=== PATIENT | female | born 1950 | race Caucasian/White ===

== ENCOUNTER 2017-07-30 06:39 | Inpatient (IN) ==
--- NOTE | 2017-07-30 06:46 | History & Physical Report ---
Date of Encounter: 07/30/17 Time of Encounter: 06:46 24 Hour HP Update - Instructions Instructions: If the History and Physical is less than 30 days old and was completed prior to A.M. admission and or procedure and has NOT been updated on calendar day of procedure please complete this update prior to performing procedure. - Update Patient reports changes in Medical Condition: No Changes in examination, assessment, or condition: No Changes in Medication: No Preop tests/diagnostics Reviewed: Yes Surgery Remains Indicated: Yes Consent for Planned Operative Procedure(s) Verified: Yes - Pre-Operative Checklist Preoperative Checklist Indicated: No Prophylactic Antibiotic Ordered: Yes Is VTE Prophylaxis Indicated?: NO
--- NOTE | 2017-07-30 07:14 | Discharge Summary ---
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 Qualifiers: Internal joint prosthesis site: other joint Encounter type: initial encounter Qualified Code(s): T84.038A - Mechanical loosening of other internal prosthetic joint, initial encounter (4) HTN (hypertension) Priority: Secondary Status: Chronic Qualifiers: Hypertension type: unspecified Qualified Code(s): I10 - Essential (primary ) hypertension (5) HLD (hyperlipidemia) Priority: Secondary Status: Chronic Qualifiers: Hyperlipidemia type: unspecified Qualified Code(s): E78.5 - Hyperlipidemia , unspecified (6) DMII (diabetes mellitus, type 2) Priority: Secondary Status: Chronic Qualifiers: Diabetes mellitus complication status: without complication Diabetes mellitus mcfp insulin use: unspecified mcfp insulin use status Qualified Code(s): E11.9 - Type 2 diabetes mellitus without complications (7) Obesity Status: Chronic - Discharge Medications Prescriptions: Vancomycin [Vancocin] 1,000 mg IV Q12HR #1 vial Home Medications: Albuterol Sulfate [Proair Respiclick] 2 puff IH Q4H PRN 04/17/16 [History] Aspirin 81 mg PO DAILY 04/17/16 [History] Atorvastatin [Lipitor] 40 mg PO HS 04/17/16 [History] Fluticasone Propionate [Flovent Hfa] 1 puff IH BID #0 04/17/16 [History] Gabapentin [Neurontin] 800 mg PO TID 04/17/16 [History] Ipratropium/Albuterol Neb [Duoneb] 3 ml IH QID PRN 04/17/16 [History] Metformin HCl [Fortamet] 500 mg PO BID 04/17/16 [History] Buspirone HCl [Buspar] 7.5 mg PO BID 07/30/17 [History] DULoxetine [Cymbalta] 30 mg PO QAM 07/30/17 [History] Diflunisal [Diflunisal] 500 mg PO BID 07/30/17 [History] Duloxetine HCl [Cymbalta] 60 mg PO HS 07/30/17 [History] EPINEPHrine [Epipen] 0.3 mg IM ONCE PRN 07/30/17 [History] Fluticasone Propionate Nasal [Flonase] 2 spr NS DAILY PRN 07/30/17 [History] OxyCODONE Immed Rel [Roxicodone 5 MG] 5 mg PO Q6HR PRN #28 tablet 07/30/17 [Rx] Oxygen 1.5 l NS AD 07/30/17 [History] Pantoprazole Sodium [Protonix] 40 mg PO BID 07/30/17 [History] Polyethylene Glycol 3350 [MiraLAX] 17 gm PO DAILY PRN 07/30/17 [History] Sucralfate [Carafate] 1 gm PO QID 07/30/17 [History] Tizanidine HCl [Zanaflex] 2 mg PO BID PRN 07/30/17 [History] Topiramate [Topamax] 100 mg PO BID 07/30/17 [History] Vancomycin [Vancocin] 1,000 mg IV Q12HR #1 vial 07/31/17 [Rx] Allergies/Adverse Reactions: 3 Allergy/AdvReac Type Severity Reaction Status Date / Time levofloxacin [From Levaquin] Allergy Severe Anaphylaxis Verified 07/20/17 14:57 tetanus toxoid, adsorbed Allergy Nausea Verified 07/20/17 14:57 Amoxicillin AdvReac Gastrointestinal Verified 07/30/17 08:36 Upset azithromycin AdvReac Gastrointestinal Verified 07/30/17 08:36 Upset cimetidine [From Tagamet] AdvReac Nausea Verified 07/30/17 08:36 codeine AdvReac Nausea Verified 07/30/17 08:36 naproxen [From Naprosyn] AdvReac Nausea Verified 07/30/17 08:36 Penicillins [PCN] AdvReac Nausea Verified 07/30/17 08:36 Sulfa (Sulfonamide AdvReac Hives Verified 07/30/17 08:36 Antibiotics) Primary care physician: Gentry Castellano CNP - Patient Status Disposition: Transfer Inpatient Rehab Fac Condition: Good - Discharge Instructions Follow Up With: Gentry Castellano CNP [Primary Care Provider] - 08/27/17 3:40 pm Ralph Soto MD [Partnered Physician] - 08/29/17 5:10 pm Micaela Moreira PAC [Physician Automatic Furnace Operator] - 08/09/17 8:45 am Additional Instructions: Discharge Instructions: Total Shoulder Please call [facility] ([phone]), your Primary Care Physician, or report to the Emergency Room if you have any of the following symptoms: Nausea, vomiting, fever greater that 101.5, swelling, chest pain, shortness of breath, increased pain/redness/drainage/odor for your incision site, numbness/ tingling, or any other concerning symptoms. ACTIVITY: Always keep your arm in the sling. Do not raise your arm away from your body. Do not use your arm to help with getting in or out of bed. No weight bearing permitted. NO SHOULDER MOTION. MEDICATIONS: Upon discharge resume your home medications. Take all the medications as prescribed. Take a stool softener if taking narcotic pain medications. Stool softeners are only effective if you drink enough fluids. Drink 6-8 glass of water or fluids a day, unless this is not allowed for another health problem. Despite using stool softeners, if you haven't had a bowel movement in 3 days, please switch to a gentle laxative. Gentle laxatives are sold over the counter. You should have a bowel movement within 24 hours, if not call the office. You will be discharged from the hospital with a prescription for pain medication. You are encouraged to decrease the use of narcotic pain medication as tolerated. Should you require a refill, please call the office. [facility] prescribes narcotic pain medication for only 4-6 weeks after surgery. If you require pain medication beyond this time period, you may be referred to your Primary Care Physician or to the Pain Clinic for further evaluation. Plan ahead for refills on pain medication as many narcotics either need to be picked up at the office or mailed. It is best to call 48-72 hours in advance of needing a prescription refill so you don't run out of medication. To help control the post-operative pain, you may take NSAIDs (Aleve,Advil, Motrin, Ibuprofen, Naprosyn) or Tylenol as prescribed on the bottle in addition to the pain medication. WOUND CARE: Leave the dressing on for 7-10 days. You may change the dressing if it becomes saturated greater than 50%. Do not get the dressing wet at anytime. Wash your hands with antibacterial soap, rinse and dry prior to any wound care. If you have rae the visiting nurse or rehab facility can remove the stapes 10-14 days after surgery and place steri-strips across the wound. Leave the steri-strips in place until they fall off on their own. You may let water from the shower run on top of the steri-strips. If you do not have a visiting nurse or rehab facility, you will need to return to the office at 10-14 days for the rae to be removed. If you have itching or redness around the dressing call the office. FOLLOW-UP: Please follow up with your surgeon in the orthopedic clinic, as scheduled - Hospital Course Hospital course: Ms. Pickering is a 67 year old female - Time Spent with Patient Total time spent providing and/or coordinating discharge services: <Ralph Soto - Last Filed: 08/02/17 08:24> Date of Encounter: 08/02/17 Time of Encounter: 08:23 - Discharge Diagnosis (1) Proximal humerus fracture Priority: Secondary Status: Chronic Qualifiers: Encounter type: subsequent encounter Fracture type: closed Fracture morphology: unspecified fracture morphology Laterality: right Fracture healing: with routine healing Qualified Code(s): S42.201D - Unspecified fracture of upper end of right humerus, subsequent encounter for fracture with routine healing (2) HTN (hypertension) Priority: Secondary Status: Chronic Qualifiers: Hypertension type: unspecified Qualified Code(s): I10 - Essential (primary ) hypertension (3) HLD (hyperlipidemia) Priority: Secondary Status: Chronic Qualifiers: Hyperlipidemia type: unspecified Qualified Code(s): E78.5 - Hyperlipidemia , unspecified (4) DMII (diabetes mellitus, type 2) Priority: Secondary Status: Chronic Qualifiers: Diabetes mellitus complication status: without complication Diabetes mellitus mcfp insulin use: unspecified mcfp insulin use status Qualified Code(s): E11.9 - Type 2 diabetes mellitus without complications (5) COPD (chronic obstructive pulmonary disease) Priority: Secondary Status: Chronic Qualifiers: COPD type: unspecified COPD Qualified Code(s): J44.9 - Chronic obstructive pulmonary disease, unspecified (6) 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 Pickering is a 67 year old female Status post removal of right total shoulder replacement. Patient with gross pus at surgery Gram stain negative cultures negative to date. Will continue on IV antibiotics for 6 weeks and plan for reimplantation at that point. Patient discharged stable condition - Time Spent with Patient Total time spent providing and/or coordinating discharge services:
[2017-07-30] MEDS ORDERED: Clindamycin 900 MG/50 ML 900 MG/50 ML IV.SOLN IVPB ONE (07:17)
[2017-07-30] MEDS ORDERED: Albuterol 2.5 MG/3 ML NEBULIZER IH ONE (07:17)
[2017-07-30] MEDS ORDERED: Lidocaine -MPF 1% 2 ML VIAL ID ONE (07:17)
[2017-07-30] MEDS ORDERED: Ringers Solution, Lactated 1,000 ML IVC SCH (07:30)
[2017-07-30] MEDS ORDERED: Famotidine 20 MG/2 ML VIAL IVP ONE (07:48)
[2017-07-30] MEDS ORDERED: Gabapentin 300 MG CAPSULE PO ONE ×2 (07:49→08:03)
[2017-07-30] MEDS ORDERED: *HR* Propofol 200 MG/20 ML VIAL IVP ONE (07:58)
[2017-07-30] MEDS ORDERED: *HR* FentaNYL (PF) 100 MCG/2 ML VIAL ONE (07:58)
[2017-07-30] MEDS ORDERED: *HR* Midazolam HCl 2 MG/2 ML VIAL ONE (07:58)
[2017-07-30] MEDS ORDERED: Ondansetron 4 MG/2 ML VIAL ONE (08:01)
[2017-07-30] MEDS ORDERED: Dexamethasone 4 MG/ML VIAL ONE (08:01)
[2017-07-30] MEDS ORDERED: Lidocaine -MPF 2% 2 ML VIAL ONE (08:01)
--- NOTE | 2017-07-30 08:06 | Anesthesia Evaluation PreOp ---
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 History: Denies Any Significant HX Other Medical History: Diabetes Type II, GERD Anesthesia History: No Prior Anesthetic Complications : No Alcohol Use: none Drug use: none Medications and Allergies Albuterol Sulfate [Proair Respiclick] 90 mcg IH AD PRN 04/17/16 [History] Aspirin 81 mg PO DAILY 04/17/16 [History] Atorvastatin [Lipitor] 40 mg PO HS 04/17/16 [History] Baclofen [Lioresal] 10 mg PO QID 04/17/16 [History] Cholecalciferol (D-3) [Vitamin D] 5,000 unit PO QWEEK 04/17/16 [History] Citalopram [CeleXA] 40 mg PO DAILY 04/17/16 [History] Clotrimazole 1% CRM [Lotrimin 1%] 1 appl TP BID 04/17/16 [History] Flovent Hfa 04/17/16 [History] Gabapentin [Neurontin] 800 mg PO TID 04/17/16 [History] HydrOXYzine 50 mg PO TID 04/17/16 [History] Hydrocortisone [Anusol-Hc] BID 04/17/16 [History] Ipratropium/Albuterol Neb [Duoneb] 3 ml IH AD PRN 04/17/16 [History] Metformin HCl [Fortamet] 500 mg PO BID 04/17/16 [History] Nasonex 2 spray DAILY PRN 04/17/16 [History] Omeprazole 40 mg PO DAILY 04/17/16 [History] OxyCODONE/APAP 10/325 [Percocet 10/325 MG] 1 tab-cap PO Q6HR PRN 04/17/16 [ History] Topiramate [Topamax] 50 mg PO TID 04/17/16 [History] OxyCODONE Immed Rel [Roxicodone 5 MG] 5 mg PO Q6HR PRN #28 tablet 07/30/17 [Rx] 3 Allergy/AdvReac Type Severity Reaction Status Date / Time levofloxacin [From Levaquin] Allergy Severe Anaphylaxis Verified 07/20/17 14:57 Amoxicillin Allergy Hives Verified 07/20/17 14:57 azithromycin Allergy Hives Verified 07/20/17 14:57 cimetidine [From Tagamet] Allergy Nausea Verified 07/20/17 14:57 codeine Allergy Nausea Verified 07/20/17 14:57 heparin Allergy See Verified 07/20/17 14:57 Comments naproxen [From Naprosyn] Allergy Nausea Verified 07/20/17 14:57 Penicillins [PCN] Allergy Nausea Verified 07/20/17 14:57 Sulfa (Sulfonamide Allergy Hives Verified 07/20/17 14:57 Antibiotics) tetanus toxoid, adsorbed Allergy Nausea Verified 07/20/17 14:57 - Meds/Allergy Pre-op Review Medications Reviewed: Yes Allergies Reviewed: Yes Beta Blockers on Current Med List: No Anesthesia Results - Labs Laboratory Tests 07/20/17 07/20/17 07/20/17 16:22 16:22 16:22 Hgb 10.7 L Hct 36.6 Plt Count 395 PT 11.0 INR 1.0 APTT 33.2 Sodium 139 Potassium 4.3 BUN 18 Creatinine 0.96 - Imaging EKG: report reviewed (SR occ PVC) Anesthesia Exam O2 Sat Height 1.51 m Height 1.51 m Weight 73.482 kg Weight 73.482 kg O2 Sat by Pulse Oximetry 94 Vital Signs Temp Pulse Resp BP Pulse Ox 98.8 F 90 18 123/73 94 07/30/17 07:17 07/30/17 07:17 07/30/17 07:17 07/30/17 07:17 07/30/17 07:17 Height: 4'11 Weight: 162 lbs NPO (# of Hours): MN Pain Scale: 0 - HEENT Pupil (Motor): Pupils equal, EOMI Mallampati: III Teeth: Edentulous Oral Opening: Greater than 3 - SHOWER ENCLOSURE INSTALLER LOC: Oriented SHOWER ENCLOSURE INSTALLER Motor: Normal RUE, Normal LUE, Normal RLE, Normal LLE, Normal Face SHOWER ENCLOSURE INSTALLER Sensory: Normal: RUE, LUE, RLE, LLE, Face - Cardiac Rhythm: Regular Murmur: None JVD: No Carotid Bruit: No - Pulmonary Breath Sounds: bilateral Clear Respiratory Effort: Symmetrical Anesthesia Assess/Plan ASA Score: 3 (HTN COPD DM) Modified [place] Scale for Level of Consciousness: Cooperative, oriented, and tranquil Anesthetic Plan: General, Regional Monitoring Plan: Standard Monitors Recovery Plan: PACU (Discussed GA and RA, agrees to proceed)
[2017-07-30] MEDS ORDERED: ROPIVACAINE HCL/PF 0.5% 30 ML VIAL ONE (08:31)
--- NOTE | 2017-07-30 08:41 | Physician Discharge Referral ---
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 For more information, call the [place] Tobacco Quit Line at 5-212-KOCV-NOW. - Dressing/Wound Care Site: Opsite dressing with underlying Prineo dressing to Right Shoulder - OK to shower , water resistent dressing, not water-proof. Keep Dressing intact and clean until first post-operative appointment, unless > 50% saturated. If saturated, remove dressing and replace with appropriate new dressing. Please contact office for any questions or concerns. - Diet/Nutrition Diet/Nutrition Orders: Regular - Activity Activity Orders: Up ad vandana, Ambulate - Services Needed Following services are medically necessary services: Nursing, Home Health Aide, Physical Therapy, Occupational Therapy Other Treatments: Total Shoulder Reverse Ball and Socket PT/OT with shoulder precautions x 6 weeks. NWB to affected upper extremity. No lifting/pulling or pushing. Stay in sling during activity, remove as tolerated and while at rest. Perform elbow ROM and computer lab assistant strengthening exercises frequently. ICE and elevate upper extremity frequently throughout the day. Encourage incentive spirometer - 10x/hour Encourage ambulation as tolerated. Sleep in upright position for comfort. - Transfer Medications Prescriptions: OxyCODONE Immed Rel [Roxicodone 5 MG] 5 mg PO Q6HR PRN #28 tablet PRN Reason: Pain Home Medications: Albuterol Sulfate [Proair Respiclick] 90 mcg IH AD PRN 04/17/16 [History] Aspirin 81 mg PO DAILY 04/17/16 [History] Atorvastatin [Lipitor] 40 mg PO HS 04/17/16 [History] Baclofen [Lioresal] 10 mg PO QID 04/17/16 [History] Cholecalciferol (D-3) [Vitamin D] 5,000 unit PO QWEEK 04/17/16 [History] Citalopram [CeleXA] 40 mg PO DAILY 04/17/16 [History] Clotrimazole 1% CRM [Lotrimin 1%] 1 appl TP BID 04/17/16 [History] Flovent Hfa 04/17/16 [History] Gabapentin [Neurontin] 800 mg PO TID 04/17/16 [History] HydrOXYzine 50 mg PO TID 04/17/16 [History] Hydrocortisone [Anusol-Hc] BID 04/17/16 [History] Ipratropium/Albuterol Neb [Duoneb] 3 ml IH AD PRN 04/17/16 [History] Metformin HCl [Fortamet] 500 mg PO BID 04/17/16 [History] Nasonex 2 spray DAILY PRN 04/17/16 [History] Omeprazole 40 mg PO DAILY 04/17/16 [History] OxyCODONE/APAP 10/325 [Percocet 10/325 MG] 1 tab-cap PO Q6HR PRN 04/17/16 [ History] Topiramate [Topamax] 50 mg PO TID 04/17/16 [History] OxyCODONE Immed Rel [Roxicodone 5 MG] 5 mg PO Q6HR PRN #28 tablet 07/30/17 [Rx] Allergies/Adverse Reactions: 3 Allergy/AdvReac Type Severity Reaction Status Date / Time levofloxacin [From Levaquin] Allergy Severe Anaphylaxis Verified 07/20/17 14:57 tetanus toxoid, adsorbed Allergy Nausea Verified 07/20/17 14:57 Amoxicillin AdvReac Gastrointestinal Verified 07/30/17 08:36 Upset azithromycin AdvReac Gastrointestinal Verified 07/30/17 08:36 Upset cimetidine [From Tagamet] AdvReac Nausea Verified 07/30/17 08:36 codeine AdvReac Nausea Verified 07/30/17 08:36 naproxen [From Naprosyn] AdvReac Nausea Verified 07/30/17 08:36 Penicillins [PCN] AdvReac Nausea Verified 07/30/17 08:36 Sulfa (Sulfonamide AdvReac Hives Verified 07/30/17 08:36 Antibiotics) Certification: Further, I certify that my clinical findings support that this patient is homebound (i.e. absences from home require considerable and taxing effort and are for medical reasons or gnosticism services or infrequently or short duration when for other reasons) because: Homebound Reason: Post-surgery restriction and or conditions limit ability to leave home Attestation: My signature below is to certify that this patient is under my care and that I, or nurse practitioner, or a physician's assistant office manager working with me, has a face-to -face encounter with this patient.
--- NOTE | 2017-07-30 09:00 | Anesthesia Procedures ---
Date of Encounter: 07/30/17 Time of Encounter: 09:03 Procedures: Anesthesia - Nerve Block Procedure Date: 07/30/17 Time: 09:00 Pre-op Diagnosis: shoulder pain r Surgical Procedure: r revision shoulder Checklist: Correct Patient Identifier Correct side: Right Blood Thinner: No Monitor Applied: EKG, BP, Pulse Oximetry Supplemental Oxygen via Nasal Cannula (L/min): 3 Sedation: Versed (mg): 2 Indication: Post Op Analgesia Pre-op Neuro Deficits: No Block Type: Supraclavicular Catheter placed: No Sterile Technique: Yes Ultrasound used: Yes Anatomy identified: Yes Visual spread of Local: Yes Neuro Stimulation: No Blood on Needle Aspiration: No Smooth Injection of Local: Yes Pain with Injection of Local: Yes Prep: Chlorhexadine Needle: 22 x 50 mm Stimuplex Local: Ropivacaine (0.5) Volume (cc): 30 Number of Attempts: 1 Complications: None/effective block Vitals: Vital Signs/O2 Sat, Most Current Temp Pulse Resp BP Pulse Ox 98.8 F 86 18 133/86 98 07/30/17 07:17 07/30/17 08:40 07/30/17 07:17 07/30/17 08:40 07/30/17 08:40
[2017-07-30] MEDS ORDERED: EPHEDrine 50 MG/ML VIAL ONE (09:33)
[2017-07-30] MEDS ORDERED: *HR* Phenylephrine 10 MG/ML VIAL ONE (09:33)
[2017-07-30] MEDS ORDERED: *HR* HYDROmorphone (PF) 1 MG/ML SYRINGE IVP PRN ×2 (09:39→11:30)
[2017-07-30] MEDS ORDERED: Ondansetron 4 MG/2 ML VIAL IVP PRN ×2 (09:39→11:30)
--- NOTE | 2017-07-30 10:03 | Orthopedic Operative Note ---
Date of procedure: 07/30/17 Pre-op diagnosis: Infected right total shoulder replacement Post-op diagnosis: same Procedure: Procedure: Removal right Total Shoulder Replacment Reverse, Estimated blood loss: 100 cc Hardware: Methylmethacrylate spacer with antibiotic Exam Under anesthesia: Full motion and no instability New Onset indurated area distal pole of the incision Procedural Notes: Patient with gross pus around the prosthesis. Decision made to do a two-stage revision. Operative procedure: The patient was brought to the operating room and placed on the operating room table. After general anesthesia was administered the operative shoulder was examined. Findings were noted. The patient was placed in the modified beachchair position. All pressure points were padded appropriately. And the head was stabilized in the neutral position. The operative extremity was prepped and draped in the sterile surgical fashion. The patient received IV antibiotics prior to skin incision. A standard deltopectoral approach was made to the operative shoulder. Incision was made through the old incision through the skin and subcutaneous tissue,hemo stasis was obtained with Bovie cautery. There was an indurated area distally this was ellipticized out. Upon entering the subcutaneous tissue and purulent material was encountered. This communicated into the joint. An extensive irrigation debridement was performed. The humeral component was loose and removed at the shoulder was dislocated glenoid sphere was removed with the osteotome followed by the baseplate. The glenoid was in good condition. Extensive debridement was performed of the glenoid and the humeral shaft. The wound sat for 2 minutes with Betadine saline solution was irrigated out with pulse irrigation followed by irrigation with 1 L of a antibiotic solution. It sat again with a Betadine solution and wound was again irrigated out pulse irrigation. A cement spacer was placed. The shoulder was irrigated out again. The shoulder was closed by the PA. The deltopectoral interval was closed with a running #1 PDS suture, subcutaneous tissue was irrigated and closed with 0 PDS suture, the skin was closed with rae. The patient was placed in a sterile dressing, abduction brace and extubated. The patient was then transferred to the recovery room in stable condition. Anesthesia: GETA Surgeon: Ralph Soto Condition: stable Disposition: PACU
[2017-07-30 10:47] LABS: Hemoglobin 10.4 g/dL (11.5-15.4)
--- NOTE | 2017-07-30 10:55 | Anesthesia Evaluation Post Op ---
Date of Encounter: 07/30/17 Time of Encounter: 11:00 - Vital Signs Vital Signs: Vital Signs/O2 Sat/Glucose, Most Current Temp Pulse Resp BP Pulse Ox 07/30/17 10:47 97.1 F L 85 16 126/66 97 07/30/17 10:37 80 19 130/67 100 07/30/17 10:27 81 12 111/68 100 07/30/17 10:17 97.3 F L 71 16 100/45 97 07/30/17 08:40 86 133/86 98 07/30/17 07:17 98.8 F 90 18 123/73 94 - Lungs Lungs: Clear Ascult./Percussion - Airway Airway: Non-obstructed - Cardiovascular Regular Rate - Mental Status Mental Status: Alert & Oriented, Answers Appropriately - Pain Pain Scale: 0 - Nausea Vomiting Nausea Vomiting: Not Present - Hydration Hydration: Ice chips - Discharge PostOp Status: Transfer Patient to floor
[2017-07-30] MEDS ORDERED: D5% in Water 1,000 ML IVC PRN (11:30)
[2017-07-30] MEDS ORDERED: Dextrose Gel 15 GM PO PRN ×2 (11:30)
[2017-07-30] MEDS ORDERED: *HR* OxyCODONE Immed Rel 5 MG TABLET PO PRN (11:30)
[2017-07-30] MEDS ORDERED: Temazepam 15 MG CAPSULE PO PRN (11:30)
[2017-07-30] MEDS ORDERED: OXYGEN NS SCH (11:30)
[2017-07-30] MEDS ORDERED: MOM Conc 10 ML UD.LIQ PO PRN (11:30)
[2017-07-30] MEDS ORDERED: (Albuterol Sulfate [Proair Respiclick] 2 PUFF) IH PRN (11:30)
[2017-07-30] MEDS ORDERED: Ipratropium/Albuterol Neb 3 ML IH PRN (11:30)
[2017-07-30] MEDS ORDERED: *HR* Dextrose 50 % in Water (Syg) 50 ML SYRINGE IVP PRN (11:30)
[2017-07-30] MEDS ORDERED: *HR* EPINEPHrine 0.3 MG/0.3 ML (PEN) IM PRN (11:30)
[2017-07-30] MEDS ORDERED: Sennosides 8.6 MG TABLET PO PRN (11:30)
[2017-07-30] MEDS ORDERED: tiZANidine 4 MG TABLET PO PRN (11:30)
[2017-07-30] MEDS ORDERED: Fluticasone Propionate Nasal 50 MCG/SPRAY BOTTLE NS PRN (11:30)
[2017-07-30] MEDS ORDERED: Naloxone 0.4 MG/ML INJ IVP PRN (11:30)
[2017-07-30] MEDS: Insulin LISPRO 300 UNITS/3 ML VIAL SQ SCH ×3 (12:52→21:31)
[2017-07-30] MEDS: Vancomycin 1,000 MG in D5% in Water 250 ML IVPB SCH (13:51)
[2017-07-30] MEDS: Gabapentin 400 MG CAPSULE PO SCH ×2 (13:51→21:36)
[2017-07-30] MEDS: Sucralfate 1 GM TABLET PO SCH ×3 (13:51→21:36)
[2017-07-30] MEDS: Ringers Solution, Lactated 1,000 ML IVC SCH (13:53)
[2017-07-30] MEDS ORDERED: Clindamycin 900 MG/50 ML 900 MG/50 ML IV.SOLN IVPB SCH (16:00)
[2017-07-30] MEDS: *HR* Enoxaparin 30 MG/0.3 ML SYRINGE SQ SCH (17:26)
[2017-07-30] MEDS ORDERED: *HR* Enoxaparin 30 MG/0.3 ML SYRINGE SQ SCH (18:00)
[2017-07-30] MEDS: *HR* OxyCODONE Immed Rel 5 MG TABLET PO PRN (19:53)
[2017-07-30] MEDS: NON-FORMULARY MEDICATION 1 EACH EACH PO SCH (21:32)
[2017-07-30] MEDS: *HR* Metformin 500 MG TABLET PO SCH (21:36)
[2017-07-30] MEDS: Topiramate 100 MG TABLET PO SCH (21:36)
[2017-07-30] MEDS: Beclomethasone 80mcg MDI IH SCH (22:10)
[2017-07-31] MEDS: Vancomycin 1,000 MG in D5% in Water 250 ML IVPB SCH ×2 (00:34→13:53)
[2017-07-31] MEDS: *HR* OxyCODONE Immed Rel 5 MG TABLET PO PRN ×3 (00:39→13:52)
[2017-07-31] MEDS: *HR* Enoxaparin 30 MG/0.3 ML SYRINGE SQ SCH ×2 (04:58→18:19)
--- NOTE | 2017-07-31 06:46 | Orthopedics Progress Note ---
Date of Encounter: 07/31/17 Time of Encounter: 06:46 - Assessment and Plan (1) Proximal humerus fracture Current Visit: No Status: Chronic Qualifiers: Encounter type: subsequent encounter Fracture type: closed Fracture morphology: unspecified fracture morphology Laterality: right Fracture healing: with routine healing Qualified Code(s): S42.201D - Unspecified fracture of upper end of right humerus, subsequent encounter for fracture with routine healing (2) HTN (hypertension) Current Visit: No Status: Chronic Qualifiers: Hypertension type: unspecified Qualified Code(s): I10 - Essential (primary ) hypertension (3) HLD (hyperlipidemia) Current Visit: No Status: Chronic Qualifiers: Hyperlipidemia type: unspecified Qualified Code(s): E78.5 - Hyperlipidemia , unspecified (4) DMII (diabetes mellitus, type 2) Current Visit: No Status: Chronic Qualifiers: Diabetes mellitus complication status: without complication Diabetes mellitus intermodal dispatcher insulin use: unspecified alf insulin use status Qualified Code(s): E11.9 - Type 2 diabetes mellitus without complications (5) COPD (chronic obstructive pulmonary disease) Current Visit: No Status: Chronic Qualifiers: COPD type: unspecified COPD Qualified Code(s): J44.9 - Chronic obstructive pulmonary disease, unspecified (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 Afebrile vital signs stable. Operative extremity: Neurovascularly intact Dressing clean dry and intact Calves nontender Assessment and plan: Continue with postoperative care Myoview 36 Objective Vital signs: Vital Signs Temp Pulse Resp BP Pulse Ox 07/31/17 03:53 98.5 F 66 20 102/66 95 07/31/17 00:30 97.7 F 88 19 138/70 97 07/30/17 22:15 14 92 07/30/17 20:39 98.7 F 90 19 118/68 91 07/30/17 15:25 98.1 F 82 18 120/68 93 07/30/17 14:08 98.1 F 75 18 127/61 96 07/30/17 13:21 98.2 F 71 18 129/68 95 07/30/17 12:08 98.0 F 73 15 114/62 97 07/30/17 11:43 97.9 F 74 15 129/69 100 07/30/17 11:15 97.9 F 74 16 109/70 98 07/30/17 10:57 97.1 F L 80 16 129/65 100 07/30/17 10:47 97.1 F L 85 16 126/66 97 07/30/17 10:37 80 19 130/67 100 07/30/17 10:27 81 12 111/68 100 07/30/17 10:17 97.3 F L 71 16 100/45 97 07/30/17 08:40 86 133/86 98 07/30/17 07:17 98.8 F 90 18 123/73 94 Intake and Output 07/30/17 07/30/17 07/31/17 15:59 23:59 07:59 Intake Total 300 / 300 50 / 50 600 / 600 Output Total 650 / 650 500 / 500 Balance -350 / -350 50 / 50 100 / 100 Intake: IV Fluids 300 / 300 250 / 250 Cleocin Premix 900 MG/50 ML 900 50 / 50 mg In 50 ml @ 100 mls/hr IVPB PREOP ONE Rx#:[id number] Vancocin 1,000 MG In Dextrose 5 250 / 250 250 / 250 % 250 ML @ 167 mls/hr IVPB Q12H RAFAEL Rx#:[id number] Oral 50 / 50 350 / 350 Output: Urine 550 / 550 500 / 500 Estimated Blood Loss 100 / 100 Other: Stool Size Moderate Stool Consistency formed Stool Characteristics Normal for Patient Stool Color Brown # Voids 1 # Bowel Movements 1 Blood Glucose* 110 148 - Labs CBC & BMP: 07/30/17 10:38 Labs: Abnormal lab results Hgb 10.4 g/dL (11.5-15.4) L 07/30/17 10:38 POC Glucose 110 (58-89) H 07/30/17 12:15 - VTE Documentation of Mechanical Device: Venous foot pump, device Consult Discharge Plan - Plan Additional Instructions: Discharge Instructions: Total Shoulder Please call [facility] ([phone]), your Primary Care Physician, or report to the Emergency Room if you have any of the following symptoms: Nausea, vomiting, fever greater that 101.5, swelling, chest pain, shortness of breath, increased pain/redness/drainage/odor for your incision site, numbness/ tingling, or any other concerning symptoms. ACTIVITY: Always keep your arm in the sling. Do not raise your arm away from your body. Do not use your arm to help with getting in or out of bed. No weight bearing permitted. NO SHOULDER MOTION. MEDICATIONS: Upon discharge resume your home medications. Take all the medications as prescribed. Take a stool softener if taking narcotic pain medications. Stool softeners are only effective if you drink enough fluids. Drink 6-8 glass of water or fluids a day, unless this is not allowed for another health problem. Despite using stool softeners, if you haven't had a bowel movement in 3 days, please switch to a gentle laxative. Gentle laxatives are sold over the counter. You should have a bowel movement within 24 hours, if not call the office. You will be discharged from the hospital with a prescription for pain medication. You are encouraged to decrease the use of narcotic pain medication as tolerated. Should you require a refill, please call the office. [facility] prescribes narcotic pain medication for only 4-6 weeks after surgery. If you require pain medication beyond this time period, you may be referred to your Primary Care Physician or to the Pain Clinic for further evaluation. Plan ahead for refills on pain medication as many narcotics either need to be picked up at the office or mailed. It is best to call 48-72 hours in advance of needing a prescription refill so you don't run out of medication. To help control the post-operative pain, you may take NSAIDs (Aleve,Advil, Motrin, Ibuprofen, Naprosyn) or Tylenol as prescribed on the bottle in addition to the pain medication. WOUND CARE: Leave the dressing on for 7-10 days. You may change the dressing if it becomes saturated greater than 50%. Do not get the dressing wet at anytime. Wash your hands with antibacterial soap, rinse and dry prior to any wound care. If you have rae the visiting nurse or rehab facility can remove the stapes 10-14 days after surgery and [address] steri-strips across the wound. Leave the steri-strips in place until they fall off on their own. You may let water from the shower run on top of the steri-strips. If you do not have a visiting nurse or rehab facility, you will need to return to the office at 10-14 days for the rae to be removed. If you have itching or redness around the dressing call the office. FOLLOW-UP: Please follow up with your surgeon in the orthopedic clinic, as scheduled Referrals: Gentry Castellano CNP [Primary Care Provider] - 08/27/17 3:40 pm Ralph Soto MD [Partnered Physician] - 08/29/17 5:10 pm Micaela Moreira PAC [Physician Assistant Mechanic] - 08/09/17 8:45 am
[2017-07-31 07:28] LABS: Hematocrit 31.5 % (35.3-44.9); Hemoglobin 9.4 g/dL (11.5-15.4)
[2017-07-31] MEDS: Beclomethasone 80mcg MDI IH SCH ×2 (08:17→21:15)
[2017-07-31] MEDS: Insulin LISPRO 300 UNITS/3 ML VIAL SQ SCH ×4 (08:18→21:28)
[2017-07-31] MEDS: Aspirin 81 MG TAB.CHEW PO SCH (08:43)
[2017-07-31] MEDS: Sucralfate 1 GM TABLET PO SCH ×4 (08:43→21:20)
[2017-07-31] MEDS: Gabapentin 400 MG CAPSULE PO SCH ×3 (08:45→21:20)
[2017-07-31] MEDS: Topiramate 100 MG TABLET PO SCH ×2 (08:47→21:20)
[2017-07-31] MEDS: *HR* Metformin 500 MG TABLET PO SCH ×2 (08:47→21:20)
[2017-07-31] MEDS: NON-FORMULARY MEDICATION 1 EACH EACH PO SCH ×2 (08:57→21:30)
--- NOTE | 2017-07-31 12:26 | Event Note ---
Date of Encounter: 07/31/17 Time of Encounter: 12:23 PCR - Right Removal of Hardware; Washout with cement spacer placement. 07/31/17 No Shoulder motion, in brace. OK for elbow ROM and road crossing guard strengthening. IV PICC line today, Vancomycin 1 g q 12 - pharm to dose. RX printed* NEED CULTURE RESULTS* POD#.1 Comorbidities: DMII, HTN, HLD, Obesity Labs: Baseline 10.7/36 07/31 - h/H 9.4 Patient seen at bedside. Pain control: adequate Participating in PT. All questions and concerns addressed. Educated on use of incentive spirometer, ambulation, and hydration. Patient educated on post-operative restrictions and care. Addressed: We discussed her infection and plan for next POW#6 D/C plan: ROBERTA printed. Patient wanting ECF - will need to start AUTH today. ECF ROBERTA created
[2017-07-31 13:58] LABS: BUN/Creatinine Ratio 12 (6-26); Blood Urea Nitrogen 11 mg/dL (7-20); Calcium 8.7 mg/dL (8.6-10.8); Carbon Dioxide 21 mEq/L (19-29); Chloride 102 mEq/L (98-109); Glucose 151 mg/dL (70-99); Osmolality,Calculated 278 (280-300); Potassium 3.6 mEq/L (3.5-4.5); Sodium 133 mEq/L (136-145); eGFR For African Americans > 60 (> 60); eGFR For Non-African Americans > 60 (> 60)
--- NOTE | 2017-07-31 17:04 | Physician Discharge Referral ---
ExtendedCare Referral Info Transfer To: [facility] Provider in Charge: Provider in Charge after Transfer: PCP Institutional Level of Care: Skilled - Diagnosis (1) Infection of total joint prosthesis Priority: Primary Status: Acute (2) Status post hardware removal Priority: Primary Status: Acute (3) Mechanical loosening of internal prosthetic joint Priority: Primary Status: Chronic (4) HTN (hypertension) Priority: Secondary Status: Chronic (5) HLD (hyperlipidemia) Priority: Secondary Status: Chronic (6) DMII (diabetes mellitus, type 2) Priority: Secondary Status: Chronic (7) Obesity Priority: Secondary Status: Chronic Expected Duration of Placement: < 30 days Prognosis: Good Aware of Diagnosis: Patient Aware of Prognosis: Patient - Transfer Medications Prescriptions: Vancomycin [Vancocin] 1,000 mg IV Q12HR #1 vial Home Medications: Albuterol Sulfate [Proair Respiclick] 2 puff IH Q4H PRN 04/17/16 [History] Aspirin 81 mg PO DAILY 04/17/16 [History] Atorvastatin [Lipitor] 40 mg PO HS 04/17/16 [History] Fluticasone Propionate [Flovent Hfa] 1 puff IH BID #0 04/17/16 [History] Gabapentin [Neurontin] 800 mg PO TID 04/17/16 [History] Ipratropium/Albuterol Neb [Duoneb] 3 ml IH QID PRN 04/17/16 [History] Metformin HCl [Fortamet] 500 mg PO BID 04/17/16 [History] Buspirone HCl [Buspar] 7.5 mg PO BID 07/30/17 [History] DULoxetine [Cymbalta] 30 mg PO QAM 07/30/17 [History] Diflunisal [Diflunisal] 500 mg PO BID 07/30/17 [History] Duloxetine HCl [Cymbalta] 60 mg PO HS 07/30/17 [History] EPINEPHrine [Epipen] 0.3 mg IM ONCE PRN 07/30/17 [History] Fluticasone Propionate Nasal [Flonase] 2 spr NS DAILY PRN 07/30/17 [History] OxyCODONE Immed Rel [Roxicodone 5 MG] 5 mg PO Q6HR PRN #28 tablet 07/30/17 [Rx] Oxygen 1.5 l NS AD 07/30/17 [History] Pantoprazole Sodium [Protonix] 40 mg PO BID 07/30/17 [History] Polyethylene Glycol 3350 [MiraLAX] 17 gm PO DAILY PRN 07/30/17 [History] Sucralfate [Carafate] 1 gm PO QID 07/30/17 [History] Tizanidine HCl [Zanaflex] 2 mg PO BID PRN 07/30/17 [History] Topiramate [Topamax] 100 mg PO BID 07/30/17 [History] Vancomycin [Vancocin] 1,000 mg IV Q12HR #1 vial 07/31/17 [Rx] Allergies/Adverse Reactions: 3 Allergy/AdvReac Type Severity Reaction Status Date / Time levofloxacin [From Levaquin] Allergy Severe Anaphylaxis Verified 07/20/17 14:57 tetanus toxoid, adsorbed Allergy Nausea Verified 07/20/17 14:57 Amoxicillin AdvReac Gastrointestinal Verified 07/30/17 08:36 Upset azithromycin AdvReac Gastrointestinal Verified 07/30/17 08:36 Upset cimetidine [From Tagamet] AdvReac Nausea Verified 07/30/17 08:36 codeine AdvReac Nausea Verified 07/30/17 08:36 naproxen [From Naprosyn] AdvReac Nausea Verified 07/30/17 08:36 Penicillins [PCN] AdvReac Nausea Verified 07/30/17 08:36 Sulfa (Sulfonamide AdvReac Hives Verified 07/30/17 08:36 Antibiotics) - Respiratory Orders None Smoking Cessation: Smoking cessation has been advised. For more information, call the [place] Tobacco Quit Line at 7-641-ICBC-NOW. - Lab Orders Lab Orders: CBC, Other (include drug levels w/frequency) (Vancomycin Peaks/ Trough - Pharmacy to dose ESR/CRP weekly BMP weekly) - Ancillary Orders May use pressure relief devices daily prn, May go on RENETTA w/family/respon republican w /meds at nurse discretion PRN, May consult with Dentist, Turner Machine Operator, Anchor Tack Puller PRN - Mobility Orders Chair, Ambulate - Rehabiliation Orders Rehab Potential: Good Rehab Orders: ROM Exercises, Evaluation for Occupational Therapy Other: No Shoulder ROM. In brace at all times. Elbow ROM ok, pediatric dental hygienist strengthening. Ambulate. RUE NWB. - Treatments List/Other: Opsite dressing, leave intact until first post-operative visit. Aubrey placed. If dressing becomes >50% saturated, contact office, remove dressing and place appropriate dressing in its place. Do not allow for dressing to get wet. Shoulder Precautions x 6 weeks. Apply cold therapy wrap 3-6x/day for 20 minutes at a time. Encourage ambulation throughout the day. Use Incentive spirometer 10x/hour. Elevate affected extremity above heart as tolerated. NWB to affected upper extremity x 6 weeks. - Diet Orders Regular CERTIFICATION: I certify that the transfer of the above named patient to an Extended Care Facility is necessary for the continuing treatment of the diagnosis listed. The above information is true and accurate reflection of patient's current condition. Confidential - Redisclosure prohibited without a patient's written consent.
[2017-08-01] MEDS: Vancomycin 1,000 MG in D5% in Water 250 ML IVPB SCH ×2 (01:59→15:22)
[2017-08-01 03:28] LABS: Hemoglobin 9.2 g/dL (11.5-15.4)
[2017-08-01] MEDS: *HR* OxyCODONE Immed Rel 5 MG TABLET PO PRN ×4 (04:03→23:44)
[2017-08-01] MEDS: *HR* Enoxaparin 30 MG/0.3 ML SYRINGE SQ SCH ×2 (06:36→17:56)
[2017-08-01] MEDS: Beclomethasone 80mcg MDI IH SCH ×2 (08:15→20:27)
[2017-08-01] MEDS: *HR* Metformin 500 MG TABLET PO SCH ×2 (08:45→21:11)
[2017-08-01] MEDS: Aspirin 81 MG TAB.CHEW PO SCH (08:45)
[2017-08-01] MEDS: Gabapentin 400 MG CAPSULE PO SCH ×3 (08:46→21:11)
[2017-08-01] MEDS: Topiramate 100 MG TABLET PO SCH ×2 (08:46→21:12)
[2017-08-01] MEDS: Sucralfate 1 GM TABLET PO SCH ×4 (08:46→21:11)
[2017-08-01] MEDS: Insulin LISPRO 300 UNITS/3 ML VIAL SQ SCH ×4 (08:48→21:14)
[2017-08-01] MEDS: NON-FORMULARY MEDICATION 1 EACH EACH PO SCH ×2 (12:01→21:12)
--- NOTE | 2017-08-01 13:27 | Orthopedics Progress Note ---
Date of Encounter: 08/01/17 Time of Encounter: 13:27 - Assessment and Plan (1) Proximal humerus fracture Current Visit: No Status: Chronic Qualifiers: Encounter type: subsequent encounter Fracture type: closed Fracture morphology: unspecified fracture morphology Laterality: right Fracture healing: with routine healing Qualified Code(s): S42.201D - Unspecified fracture of upper end of right humerus, subsequent encounter for fracture with routine healing (2) HTN (hypertension) Current Visit: No Status: Chronic Qualifiers: Hypertension type: unspecified Qualified Code(s): I10 - Essential (primary ) hypertension (3) HLD (hyperlipidemia) Current Visit: No Status: Chronic Qualifiers: Hyperlipidemia type: unspecified Qualified Code(s): E78.5 - Hyperlipidemia , unspecified (4) DMII (diabetes mellitus, type 2) Current Visit: No Status: Chronic Qualifiers: Diabetes mellitus complication status: without complication 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 mellitus school janitor insulin use: unspecified residential insulin use status Qualified Code(s): E11.9 - Type 2 diabetes mellitus without complications (5) COPD (chronic obstructive pulmonary disease) Current Visit: No Status: Chronic Qualifiers: COPD type: unspecified COPD Qualified Code(s): J44.9 - Chronic obstructive pulmonary disease, unspecified (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 Afebrile vital signs stable. Operative extremity: Neurovascularly intact Dressing clean dry and intact Calves nontender Assessment and plan: Continue with postoperative care Hematocrit 31 Objective Vital signs: Vital Signs Temp Pulse Resp BP Pulse Ox 08/01/17 11:51 93 15 108/57 94 08/01/17 08:15 18 93 08/01/17 07:18 98.5 F 92 14 101/58 93 08/01/17 03:57 98.6 F 90 18 100/59 92 07/31/17 23:44 97.9 F 111 18 151/71 94 07/31/17 21:17 18 96 07/31/17 19:35 97.9 F 119 18 165/65 96 07/31/17 17:27 98.0 F 76 14 120/68 98 Intake and Output 07/31/17 08/01/17 08/01/17 23:59 07:59 15:59 Intake Total 480 / 480 480 / 480 Balance 480 / 480 480 / 480 Intake: Oral 480 / 480 480 / 480 Other: # Voids 3 2 Blood Glucose* 112 123 - Labs CBC & BMP: 08/01/17 03:20 07/31/17 13:26 Labs: Abnormal lab results Hgb 9.2 g/dL (11.5-15.4) L 08/01/17 03:20 Hct 31.0 % (35.3-44.9) L 08/01/17 03:20 Sodium 133 mEq/L (136-145) L 07/31/17 13:26 Glucose 151 mg/dL (70-99) H 07/31/17 13:26 POC Glucose 123 (58-89) H 08/01/17 11:58 Calculated Osmolality 278 (280-300) L 07/31/17 13:26 - VTE Documentation of Mechanical Device: Venous foot pump, device Consult Discharge Plan - Plan Additional Instructions: Discharge Instructions: Total Shoulder Please call [facility] ([phone]), your Primary Care Physician, or report to the Emergency Room if you have any of the following symptoms: Nausea, vomiting, fever greater that 101.5, swelling, chest pain, shortness of breath, increased pain/redness/drainage/odor for your incision site, numbness/ tingling, or any other concerning symptoms. ACTIVITY: Always keep your arm in the sling. Do not raise your arm away from your body. Do not use your arm to help with getting in or out of bed. No weight bearing permitted. NO SHOULDER MOTION. MEDICATIONS: Upon discharge resume your home medications. Take all the medications as prescribed. Take a stool softener if taking narcotic pain medications. Stool softeners are only effective if you drink enough fluids. Drink 6-8 glass of water or fluids a day, unless this is not allowed for another health problem. Despite using stool softeners, if you haven't had a bowel movement in 3 days, please switch to a gentle laxative. Gentle laxatives are sold over the counter. You should have a bowel movement within 24 hours, if not call the office. You will be discharged from the hospital with a prescription for pain medication. You are encouraged to decrease the use of narcotic pain medication as tolerated. Should you require a refill, please call the office. [facility] prescribes narcotic pain medication for only 4-6 weeks after surgery. If you require pain medication beyond this time period, you may be referred to your Primary Care Physician or to the Pain Clinic for further evaluation. Plan ahead for refills on pain medication as many narcotics either need to be picked up at the office or mailed. It is best to call 48-72 hours in advance of needing a prescription refill so you don't run out of medication. To help control the post-operative pain, you may take NSAIDs (Aleve,Advil, Motrin, Ibuprofen, Naprosyn) or Tylenol as prescribed on the bottle in addition to the pain medication. WOUND CARE: Leave the dressing on for 7-10 days. You may change the dressing if it becomes saturated greater than 50%. Do not get the dressing wet at anytime. Wash your hands with antibacterial soap, rinse and dry prior to any wound care. If you have rae the visiting nurse or rehab facility can remove the stapes 10-14 days after surgery [address] steri-strips across the wound. Leave the steri-strips in place until they fall off on their own. You may let water from the shower run on top of the steri-strips. If you do not have a visiting nurse or rehab facility, you will need to return to the office at 10-14 days for the rae to be removed. If you have itching or redness around the dressing call the office. FOLLOW-UP: Please follow up with your surgeon in the orthopedic clinic, as scheduled Referrals: Gentry Castellano CNP [Primary Care Provider] - 08/27/17 3:40 pm Ralph Soto MD [Partnered Physician] - 08/29/17 5:10 pm Micaela Moreira PAC [Physician Secretary Bookkeeper] - 08/09/17 8:45 am Prescriptions: Vancomycin [Vancocin] 1,000 mg IV Q12HR #1 vial
[2017-08-02] MEDS: *HR* OxyCODONE Immed Rel 5 MG TABLET PO PRN ×2 (06:24→16:50)
[2017-08-02] MEDS: *HR* Enoxaparin 30 MG/0.3 ML SYRINGE SQ SCH ×2 (06:24→16:51)
[2017-08-02] MEDS: Beclomethasone 80mcg MDI IH SCH ×2 (08:07→22:31)
[2017-08-02] MEDS: Insulin LISPRO 300 UNITS/3 ML VIAL SQ SCH ×4 (08:17→20:46)
[2017-08-02] MEDS: Sucralfate 1 GM TABLET PO SCH ×4 (08:17→20:46)
[2017-08-02] MEDS: *HR* Metformin 500 MG TABLET PO SCH ×2 (08:17→20:46)
[2017-08-02] MEDS: Topiramate 100 MG TABLET PO SCH ×2 (08:18→20:45)
[2017-08-02] MEDS: Aspirin 81 MG TAB.CHEW PO SCH (08:18)
[2017-08-02] MEDS: Gabapentin 400 MG CAPSULE PO SCH ×3 (08:18→20:45)
[2017-08-02] MEDS: NON-FORMULARY MEDICATION 1 EACH EACH PO SCH (08:19)
--- NOTE | 2017-08-02 08:23 | Orthopedics Progress Note ---
Date of Encounter: 08/02/17 Time of Encounter: 08:22 - Assessment and Plan (1) Proximal humerus fracture Current Visit: No Status: Chronic Qualifiers: Encounter type: subsequent encounter Fracture type: closed Fracture morphology: unspecified fracture morphology Laterality: right Fracture healing: with routine healing Qualified Code(s): S42.201D - Unspecified fracture of upper end of right humerus, subsequent encounter for fracture with routine healing (2) HTN (hypertension) Current Visit: No Status: Chronic Qualifiers: Hypertension type: unspecified Qualified Code(s): I10 - Essential (primary ) hypertension (3) HLD (hyperlipidemia) Current Visit: No Status: Chronic Qualifiers: Hyperlipidemia type: unspecified Qualified Code(s): E78.5 - Hyperlipidemia , unspecified (4) DMII (diabetes mellitus, type 2) Current Visit: No Status: Chronic Qualifiers: Diabetes mellitus complication status: without complication 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 fpc insulin use status Qualified Code(s): E11.9 - Type 2 diabetes mellitus without complications (5) COPD (chronic obstructive pulmonary disease) Current Visit: No Status: Chronic Qualifiers: COPD type: unspecified COPD Qualified Code(s): J44.9 - Chronic obstructive pulmonary disease, unspecified (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 Afebrile vital signs stable. Operative extremity: Neurovascularly intact Dressing clean dry and intact Calves nontender Assessment and plan: Continue with postoperative care Cultures negative to date we will continue to monitor discharged today Objective Vital signs: Vital Signs Temp Pulse Resp BP Pulse Ox 08/02/17 07:25 97.7 F 103 14 106/63 94 08/02/17 04:40 98.3 F 79 16 118/73 92 08/01/17 23:47 98.1 F 94 18 124/64 93 08/01/17 20:27 14 93 08/01/17 19:01 97.4 F L 90 18 108/63 96 08/01/17 11:51 93 15 108/57 94 Intake and Output 08/01/17 08/02/17 08/02/17 23:59 07:59 15:59 Intake Total 240 / 240 240 / 240 250 / 250 Balance 240 / 240 240 / 240 250 / 250 Intake: IV Fluids 250 / 250 Vancocin 1,000 MG In Dextrose 5 250 / 250 % 250 ML @ 167 mls/hr IVPB Q24H [facility]FAEL Rx#:[id number] Oral 240 / 240 240 / 240 Other: # Voids 2 2 Blood Glucose* 137 122 - Labs CBC & BMP: 08/01/17 03:20 07/31/17 13:26 Labs: Abnormal lab results Hgb 9.2 g/dL (11.5-15.4) L 08/01/17 03:20 Hct 31.0 % (35.3-44.9) L 08/01/17 03:20 Sodium 133 mEq/L (136-145) L 07/31/17 13:26 Glucose 151 mg/dL (70-99) H 07/31/17 13:26 POC Glucose 122 (58-89) H 08/02/17 07:30 Calculated Osmolality 278 (280-300) L 07/31/17 13:26 - VTE Documentation of Mechanical Device: Venous foot pump, device Consult Discharge Plan - Plan Additional Instructions: Discharge Instructions: Total Shoulder Please call [facility] ([phone]), your Primary Care Physician, or report to the Emergency Room if you have any of the following symptoms: Nausea, vomiting, fever greater that 101.5, swelling, chest pain, shortness of breath, increased pain/redness/drainage/odor for your incision site, numbness/ tingling, or any other concerning symptoms. ACTIVITY: Always keep your arm in the sling. Do not raise your arm away from your body. Do not use your arm to help with getting in or out of bed. No weight bearing permitted. NO SHOULDER MOTION. MEDICATIONS: Upon discharge resume your home medications. Take all the medications as prescribed. Take a stool softener if taking narcotic pain medications. Stool softeners are only effective if you drink enough fluids. Drink 6-8 glass of water or fluids a day, unless this is not allowed for another health problem. Despite using stool softeners, if you haven't had a bowel movement in 3 days, please switch to a gentle laxative. Gentle laxatives are sold over the counter. You should have a bowel movement within 24 hours, if not call the office. You will be discharged from the hospital with a prescription for pain medication. You are encouraged to decrease the use of narcotic pain medication as tolerated. Should you require a refill, please call the office. [facility] prescribes narcotic pain medication for only 4-6 weeks after surgery. If you require pain medication beyond this time period, you may be referred to your Primary Care Physician or to the Pain Clinic for further evaluation. Plan ahead for refills on pain medication as many narcotics either need to be picked up at the office or mailed. It is best to call 48-72 hours in advance of needing a prescription refill so you don't run out of medication. To help control the post-operative pain, you may take NSAIDs (Aleve,Advil, Motrin, Ibuprofen, Naprosyn) or Tylenol as prescribed on the bottle in addition to the pain medication. WOUND CARE: Leave the dressing on for 7-10 days. You may change the dressing if it becomes saturated greater than 50%. Do not get the dressing wet at anytime. Wash your hands with antibacterial soap, rinse and dry prior to any wound care. If you have rae the visiting nurse or rehab facility can remove the stapes 10-14 days after surgery and place steri-strips across the wound. Leave the steri-strips in place until they fall off on their own. You may let water from the shower run on top of the steri-strips. If you do not have a visiting nurse or rehab facility, you will need to return to the office at 10-14 days for the rae to be removed. If you have itching or redness around the dressing call the office. FOLLOW-UP: Please follow up with your surgeon in the orthopedic clinic, as scheduled Referrals: Gentry Castellano CNP [Primary Care Provider] - 08/27/17 3:40 pm Ralph Soto MD [Partnered Physician] - 08/29/17 5:10 pm Micaela Moreira PAC [Physician Electrician Underground] - 08/09/17 8:45 am Prescriptions: Vancomycin [Vancocin] 1,000 mg IV Q12HR #1 vial
[2017-08-02 08:57] LABS: Hematocrit 29.7 % (35.3-44.9); Hemoglobin 8.7 g/dL (11.5-15.4)
[2017-08-02] MEDS: Ringers Solution, Lactated 1,000 ML IVC SCH ×2 (11:07→11:08)
--- NOTE | 2017-08-02 12:51 | Event Note ---
Date of Encounter: 08/02/17 Time of Encounter: 12:50 PCR - Right Removal of Hardware; Washout with cement spacer placement. 07/31/17 No Shoulder motion, in brace. OK for elbow ROM and dobby looms pegger strengthening. IV PICC line today, Vancomycin 1 g q 24 - pharm to dose. RX printed* NEED CULTURE RESULTS* pre-godfrey negative POD#.1 Comorbidities: DMII, HTN, HLD, Obesity Labs: Baseline 10.7/36 07/31 - h/H 9.4/08/02 - 8.7/ - asyptom Patient seen at bedside. Pain control: adequate Participating in PT. All questions and concerns addressed. Educated on use of incentive spirometer, ambulation, and hydration. Patient educated on post-operative restrictions and care. Addressed: We discussed her infection and plan for next POW#6 D/C plan: Patient wanting ECF -awaiting Auth. ECF [facility] created
[2017-08-02] MEDS: Vancomycin 1,000 MG in D5% in Water 250 ML IVPB SCH (14:47)
[2017-08-03 03:43] LABS: eGFR For African Americans > 60 (> 60); eGFR For Non-African Americans > 60 (> 60)
[2017-08-03] MEDS: *HR* Enoxaparin 30 MG/0.3 ML SYRINGE SQ SCH (05:49)
[2017-08-03] MEDS: *HR* OxyCODONE Immed Rel 5 MG TABLET PO PRN (05:50)
--- NOTE | 2017-08-03 06:22 | Orthopedics Progress Note ---
Date of Encounter: 08/03/17 Time of Encounter: 06:21 - Assessment and Plan (1) Proximal humerus fracture Current Visit: No Status: Chronic Qualifiers: Encounter type: subsequent encounter Fracture type: closed Fracture morphology: unspecified fracture morphology Laterality: right Fracture healing: with routine healing Qualified Code(s): S42.201D - Unspecified fracture of upper end of right humerus, subsequent encounter for fracture with routine healing (2) HTN (hypertension) Current Visit: No Status: Chronic Qualifiers: Hypertension type: unspecified Qualified Code(s): I10 - Essential (primary ) hypertension (3) HLD (hyperlipidemia) Current Visit: No Status: Chronic Qualifiers: Hyperlipidemia type: unspecified Qualified Code(s): E78.5 - Hyperlipidemia , unspecified (4) DMII (diabetes mellitus, type 2) Current Visit: No Status: Chronic Qualifiers: Diabetes mellitus complication status: without complication 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 fci insulin use status Qualified Code(s): E11.9 - Type 2 diabetes mellitus without complications (5) COPD (chronic obstructive pulmonary disease) Current Visit: No Status: Chronic Qualifiers: COPD type: unspecified COPD Qualified Code(s): J44.9 - Chronic obstructive pulmonary disease, unspecified (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 Afebrile vital signs stable. Operative extremity: Neurovascularly intact Dressing clean dry and intact Calves nontender Assessment and plan: Continue with postoperative care Cultures negative to date we will continue to monitor discharged today held yesterday secondary to placement Objective Vital signs: Vital Signs Temp Pulse Resp BP Pulse Ox 08/03/17 03:18 75 96 08/02/17 23:21 97.8 F 52 20 102/57 94 08/02/17 22:31 17 91 08/02/17 20:40 98.3 F 74 18 126/65 95 08/02/17 17:18 98.7 F 76 15 128/59 97 08/02/17 12:00 97.9 F 87 15 125/60 96 08/02/17 08:07 16 92 08/02/17 07:25 97.7 F 103 14 106/63 94 Intake and Output 08/02/17 08/02/17 08/03/17 15:59 23:59 07:59 Intake Total 490 / 490 250 / 250 Output Total 0 / 0 Balance 490 / 490 250 / 250 Intake: IV Fluids 250 / 250 250 / 250 Vancocin 1,000 MG In Dextrose 5 250 / 250 250 / 250 % 250 ML @ 167 mls/hr IVPB Q24H [facility]FA[facility] Rx#:[id number] Oral 240 / 240 Output: Urine 0 / 0 Other: Meal Breakfast Percent of Meal Consumed 90% # Voids 1 1 Blood Glucose* 91 130 - Labs CBC & BMP: 08/02/17 08:45 08/03/17 03:15 Labs: Abnormal lab results Hgb 8.7 g/dL (11.5-15.4) L 08/02/17 08:45 Hct 29.7 % (35.3-44.9) L 08/02/17 08:45 Sodium 133 mEq/L (136-145) L 07/31/17 13:26 Glucose 151 mg/dL (70-99) H 07/31/17 13:26 POC Glucose 130 (58-89) H 08/02/17 20:38 Calculated Osmolality 278 (280-300) L 07/31/17 13:26 - VTE Documentation of Mechanical Device: Intermittent pneumatic compression device Consult Discharge Plan - Plan Additional Instructions: Discharge Instructions: Total Shoulder Please call [facility] ([phone]), your Primary Care Physician, or report to the Emergency Room if you have any of the following symptoms: Nausea, vomiting, fever greater that 101.5, swelling, chest pain, shortness of breath, increased pain/redness/drainage/odor for your incision site, numbness/ tingling, or any other concerning symptoms. ACTIVITY: Always keep your arm in the sling. Do not raise your arm away from your body. Do not use your arm to help with getting in or out of bed. No weight bearing permitted. NO SHOULDER MOTION. MEDICATIONS: Upon discharge resume your home medications. Take all the medications as prescribed. Take a stool softener if taking narcotic pain medications. Stool softeners are only effective if you drink enough fluids. Drink 6-8 glass of water or fluids a day, unless this is not allowed for another health problem. Despite using stool softeners, if you haven't had a bowel movement in 3 days, please switch to a gentle laxative. Gentle laxatives are sold over the counter. You should have a bowel movement within 24 hours, if not call the office. You will be discharged from the hospital with a prescription for pain medication. You are encouraged to decrease the use of narcotic pain medication as tolerated. Should you require a refill, please call the office. [facility] prescribes narcotic pain medication for only 4-6 weeks after surgery. If you require pain medication beyond this time period, you may be referred to your Primary Care Physician or to the Pain Clinic for further evaluation. Plan ahead for refills on pain medication as many narcotics either need to be picked up at the office or mailed. It is best to call 48-72 hours in advance of needing a prescription refill so you don't run out of medication. To help control the post-operative pain, you may take NSAIDs (Aleve,Advil, Motrin, Ibuprofen, Naprosyn) or Tylenol as prescribed on the bottle in addition to the pain medication. WOUND CARE: Leave the dressing on for 7-10 days. You may change the dressing if it becomes saturated greater than 50%. Do not get the dressing wet at anytime. Wash your hands with antibacterial soap, rinse and dry prior to any wound care. If you have rae the visiting nurse or rehab facility can remove the stapes 10-14 days after surgery and place steri-strips across the wound. Leave the steri-strips in place until they fall off on their own. You may let water from the shower run on top of the steri-strips. If you do not have a visiting nurse or rehab facility, you will need to return to the office at 10-14 days for the rae to be removed. If you have itching or redness around the dressing call the office. FOLLOW-UP: Please follow up with your surgeon in the orthopedic clinic, as scheduled Referrals: Gentry Castellano CNP [Primary Care Provider] - 08/27/17 3:40 pm Ralph Stoo MD [Partnered Physician] - 08/29/17 5:10 pm Micaela Moreira, PAC [Physician Dredge Pump Operator] - 08/09/17 8:45 am Prescriptions: Vancomycin [Vancocin] 1,000 mg IV Q12HR #1 vial
[2017-08-03] MEDS: *HR* Metformin 500 MG TABLET PO SCH (09:03)
[2017-08-03] MEDS: Gabapentin 400 MG CAPSULE PO SCH (09:03)
[2017-08-03] MEDS: Sucralfate 1 GM TABLET PO SCH (09:06)
[2017-08-03] MEDS: Topiramate 100 MG TABLET PO SCH (09:06)
[2017-08-03] MEDS: Aspirin 81 MG TAB.CHEW PO SCH (09:06)
[2017-08-03] MEDS: Insulin LISPRO 300 UNITS/3 ML VIAL SQ SCH ×2 (09:12→12:00)
[2017-08-03 11:10] VITALS: BP 114/67
[2017-08-03] MEDS: Beclomethasone 80mcg MDI IH SCH (11:27)
[2017-08-03] MEDS ORDERED: FLUARIX QUAD 2017-18 36MOS UP/PF 0.5 ML SYRINGE IM ONE (12:12)
[2017-08-03] MEDS ORDERED: Aminoglycoside Consult 1 EACH MC ONE (15:32)
== END 2017-08-03 15:33 | DRG 496 ==
LOC: SAMDAY 06:39 → 3NENU 11:01
PROVIDERS: ADMIT Orthopaedic Surgery; ATTEND Orthopaedic Surgery

== ENCOUNTER 2017-12-27 12:59 | Observation (INO) ==
[2017-12-27] MEDS ORDERED: *HR* Succinylcholine 200 MG/10 ML VIAL IVP ONE ×2 (13:25→16:12)
[2017-12-27] MEDS ORDERED: Albuterol 2.5 MG/3 ML NEBULIZER IH ONE (13:35)
[2017-12-27] MEDS ORDERED: Ringers Solution, Lactated 1,000 ML IVC SCH ×2 (13:45→17:15)
--- NOTE | 2017-12-27 15:21 | History & Physical Report ---
Date of Encounter: 12/27/17 Time of Encounter: 15:20 24 Hour HP Update - Instructions Instructions: If the History and Physical is less than 30 days old and was completed prior to A.M. admission and or procedure and has NOT been updated on calendar day of procedure please complete this update prior to performing procedure. - Update Patient reports changes in Medical Condition: No Changes in examination, assessment, or condition: No Changes in Medication: No Preop tests/diagnostics Reviewed: Yes Surgery Remains Indicated: Yes Consent for Planned Operative Procedure(s) Verified: Yes - Pre-Operative Checklist Preoperative Checklist Indicated: No Prophylactic Antibiotic Ordered: Yes Is VTE Prophylaxis Indicated?: NO
[2017-12-27] MEDS ORDERED: *HR* OxyCODONE Immed Rel 5 MG TABLET PO ONE (15:25)
[2017-12-27] MEDS ORDERED: Ethanol\\Acetic Acid\\Na Ace\\Ben 1,000 ML IRRIG.SOLN IR ONE (15:26)
[2017-12-27] MEDS ORDERED: Bupivacaine/EPI 1:200k 0.5%PF 30 ML VIAL ONE (15:28)
[2017-12-27] MEDS ORDERED: Acetaminophen IV 1,000 MG/100 ML INFUS..BTL IVPB ONE (15:39)
[2017-12-27] MEDS ORDERED: Gabapentin 300 MG CAPSULE PO ONE (15:40)
--- NOTE | 2017-12-27 15:44 | Anesthesia Evaluation PreOp ---
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 History: Other (migraines) Other Medical History: Renal (stones), Diabetes Type II, GERD (well controlled) Anesthesia History: No Prior Anesthetic Complications, Past Anesthesia ( appendectomy, hysterectomy, R shoulder x2) Alcohol Use: none Drug use: none Medications and Allergies Albuterol Sulfate [Proair Respiclick] 2 puff IH Q4H PRN 04/17/16 [History] Aspirin 81 mg PO DAILY 04/17/16 [History] Atorvastatin [Lipitor] 40 mg PO HS 04/17/16 [History] Fluticasone Propionate [Flovent Hfa] 1 puff IH BID #0 04/17/16 [History] Gabapentin [Neurontin] 800 mg PO TID 04/17/16 [History] Metformin HCl [Fortamet] 500 mg PO DAILY 04/17/16 [History] Buspirone HCl [Buspar] 7.5 mg PO BID 07/30/17 [History] DULoxetine [Cymbalta] 30 mg PO DAILY 07/30/17 [History] Diflunisal 500 mg PO BID 07/30/17 [History] Duloxetine HCl [Cymbalta] 60 mg PO HS 07/30/17 [History] Sucralfate [Carafate] 1 gm PO QID 07/30/17 [History] Tizanidine HCl [Zanaflex] 2 mg PO BID PRN 07/30/17 [History] Topiramate [Topamax] 100 mg PO DAILY 07/30/17 [History] Acetaminophen [Non-Aspirin] 650 mg PO Q6H PRN 09/21/17 [History] Ascorbic Acid [Vitamin C] 250 mg PO DAILY 09/21/17 [History] Cetirizine HCl [Zyrtec] 10 mg PO HS 09/21/17 [History] Omeprazole [PriLOSEC] 20 mg PO BID 09/21/17 [History] OxyCODONE Immed Rel [Roxicodone 5 MG] 5 - 10 mg PO Q6HR PRN 09/21/17 [History] Ropinirole HCl [Requip] 0.25 mg PO HS 09/21/17 [History] Clindamycin [Cleocin] 150 mg PO Q6HR #20 capsule 12/27/17 [Rx] Memantine HCl 5 mg PO BID 12/27/17 [History] Multivitamin [One Daily Multivitamin] 1 tab PO DAILY 12/27/17 [History] OxyCODONE Immed Rel [Roxicodone 5 MG] 5 mg PO Q4HR PRN 5 Days #20 tablet [Rx] 3 Allergy/AdvReac Type Severity Reaction Status Date / Time levofloxacin [From Levaquin] Allergy Severe Anaphylaxis Verified 09/21/17 14:18 tetanus toxoid, adsorbed Allergy Nausea Verified 09/21/17 14:18 Amoxicillin AdvReac Gastrointestinal Verified 09/21/17 14:18 Upset azithromycin AdvReac Gastrointestinal Verified 09/21/17 14:18 Upset cimetidine [From Tagamet] AdvReac Nausea Verified 09/21/17 14:18 codeine AdvReac Nausea Verified 09/21/17 14:18 naproxen [From Naprosyn] AdvReac Rash Verified 09/21/17 14:18 Penicillins [PCN] AdvReac Nausea Verified 09/21/17 14:18 Sulfa (Sulfonamide AdvReac Hives Verified 09/21/17 14:18 Antibiotics) - Meds/Allergy Pre-op Review Medications Reviewed: Yes Allergies Reviewed: Yes Beta Blockers on Current Med List: No Anesthesia Results - Labs Laboratory Tests 07/31/17 12/24/17 12/24/17 13:26 15:21 15:21 WBC 6.3 Hgb 10.0 L Hct 34.3 L Plt Count 390 PT 10.4 INR 1.0 APTT 34.5 Sodium Potassium Chloride Carbon Dioxide BUN Creatinine Glucose 151 H POC Glucose Est Mean Plasma Glucose Hemoglobin A1c 12/24/17 12/24/17 12/27/17 15:21 15:21 13:22 WBC Hgb Hct Plt Count PT INR APTT Sodium 132 L Potassium 4.2 Chloride 101 Carbon Dioxide 25 BUN 21 Creatinine 0.79 Glucose POC Glucose 97 H Est Mean Plasma Glucose 91 Hemoglobin A1c 4.8 - Imaging EKG: report reviewed (Interpretive Statements SINUS RHYTHM WITH OCCASIONAL ECTOPIC PREMATURE COMPLEXES Electronically Signed On 07-25-2017 13:44:26 EDT by Misael Sinclair MD) Anesthesia Exam O2 Sat Height 1.5 m Height 1.5 m Height 1.5 m Weight 75.75 kg Weight 75.75 kg Weight 75.75 kg O2 Sat by Pulse Oximetry 99 O2 Sat by Pulse Oximetry 99 Vital Signs Temp Pulse Resp BP Pulse Ox 97.8 F 68 18 139/64 99 12/27/17 13:25 12/27/17 13:25 12/27/17 13:25 12/27/17 13:25 12/27/17 13:25 Height: 59" Weight: 167lbs NPO (# of Hours): >8 - HEENT Pupil (Motor): Pupils equal, EOMI Mallampati: III Teeth: Edentulous Oral Opening: Greater than 3 - RESOURCE MANAGEMENT PLANNER LOC: Oriented RESOURCE MANAGEMENT PLANNER Motor: Normal RUE, Normal LUE, Normal RLE, Normal LLE, Normal Face RESOURCE MANAGEMENT PLANNER Sensory: Normal: RUE, LUE, RLE, LLE, Face - Cardiac Rhythm: Regular - Pulmonary Breath Sounds: bilateral Clear Respiratory Effort: Symmetrical Anesthesia Assess/Plan ASA Score: 3 Modified Vignesh Scale for Level of Consciousness: Cooperative, oriented, and tranquil Anesthetic Plan: General (r/b/a discussed, questions answered, consent obtained) Monitoring Plan: Standard Monitors Recovery Plan: PACU
--- NOTE | 2017-12-27 15:48 | Discharge Summary ---
Outpatient Proc Discharge Plan - Plan Additional Instructions: Stay in sling do not remove dressing okay to squeeze ball Home Medications: Albuterol Sulfate [Proair Respiclick] 2 puff IH Q4H PRN 04/17/16 [History] Aspirin 81 mg PO DAILY 04/17/16 [History] Atorvastatin [Lipitor] 40 mg PO HS 04/17/16 [History] Fluticasone Propionate [Flovent Hfa] 1 puff IH BID #0 04/17/16 [History] Gabapentin [Neurontin] 800 mg PO TID 04/17/16 [History] Metformin HCl [Fortamet] 500 mg PO DAILY 04/17/16 [History] Buspirone HCl [Buspar] 7.5 mg PO BID 07/30/17 [History] DULoxetine [Cymbalta] 30 mg PO DAILY 07/30/17 [History] Diflunisal 500 mg PO BID 07/30/17 [History] Duloxetine HCl [Cymbalta] 60 mg PO HS 07/30/17 [History] Sucralfate [Carafate] 1 gm PO QID 07/30/17 [History] Tizanidine HCl [Zanaflex] 2 mg PO BID PRN 07/30/17 [History] Topiramate [Topamax] 100 mg PO DAILY 07/30/17 [History] Acetaminophen [Non-Aspirin] 650 mg PO Q6H PRN 09/21/17 [History] Ascorbic Acid [Vitamin C] 250 mg PO DAILY 09/21/17 [History] Cetirizine HCl [Zyrtec] 10 mg PO HS 09/21/17 [History] Omeprazole [PriLOSEC] 20 mg PO BID 09/21/17 [History] OxyCODONE Immed Rel [Roxicodone 5 MG] 5 - 10 mg PO Q6HR PRN 09/21/17 [History] Ropinirole HCl [Requip] 0.25 mg PO HS 09/21/17 [History] Clindamycin [Cleocin] 150 mg PO Q6HR #20 capsule 12/27/17 [Rx] Memantine HCl 5 mg PO BID 12/27/17 [History] Multivitamin [One Daily Multivitamin] 1 tab PO DAILY 12/27/17 [History] OxyCODONE Immed Rel [Roxicodone 5 MG] 5 mg PO Q4HR PRN 5 Days #20 tablet [Rx]
[2017-12-27] MEDS ORDERED: *HR* FentaNYL (PF) 100 MCG/2 ML VIAL ONE (16:09)
[2017-12-27] MEDS ORDERED: *HR* Propofol 200 MG/20 ML VIAL IVP ONE (16:10)
[2017-12-27] MEDS ORDERED: *HR* Rocuronium Bromide 50 MG/5 ML VIAL ONE (16:12)
[2017-12-27] MEDS ORDERED: Lidocaine -MPF 2% 2 ML VIAL ONE (16:12)
[2017-12-27] MEDS ORDERED: Sennosides 8.6 MG TABLET PO PRN (17:05)
[2017-12-27] MEDS ORDERED: Naloxone 0.4 MG/ML INJ IVP PRN (17:05)
[2017-12-27] MEDS ORDERED: Temazepam 15 MG CAPSULE PO PRN (17:05)
[2017-12-27] MEDS ORDERED: MOM Conc 10 ML UD.LIQ PO PRN (17:05)
[2017-12-27] MEDS ORDERED: Ondansetron 4 MG/2 ML VIAL IVP PRN (17:05)
--- NOTE | 2017-12-27 17:05 | Orthopedic Operative Note ---
Date of procedure: 12/27/17 Pre-op diagnosis: Infection right shoulder Post-op diagnosis: same Procedure: Patient brought to the operating room and placed on the operating table IV access was compromised PICC line was nonfunctional, multiple times at alternative IV access was attempted by anesthesia was unsuccessful. Patient was transferred to recovery room and admitted. Surgeon: Ralph Soto Was there an residential real estate assistant present: No Estimated blood loss (cc): 0 Condition: stable Disposition: PACU
[2017-12-27] MEDS ORDERED: tiZANidine 4 MG TABLET PO PRN (17:07)
[2017-12-27] MEDS: *HR* OxyCODONE Immed Rel 5 MG TABLET PO PRN (18:02)
[2017-12-27] MEDS: Gabapentin 400 MG CAPSULE PO SCH (20:35)
[2017-12-27] MEDS: Sucralfate 1 GM TABLET PO SCH (20:35)
[2017-12-27] MEDS: Acetaminophen 325 MG TABLET PO PRN (20:36)
[2017-12-27] MEDS: DIFLUNISAL 500 MG PO SCH (20:38)
[2017-12-27] MEDS ORDERED: Loratadine 10 MG TABLET PO SCH (21:00)
[2017-12-27] MEDS ORDERED: rOPINIRole 0.25 MG TABLET PO SCH (21:00)
[2017-12-27] MEDS: Beclomethasone 80mcg MDI IH SCH (22:29)
[2017-12-28] MEDS: *HR* OxyCODONE Immed Rel 5 MG TABLET PO PRN (00:11)
--- NOTE | 2017-12-28 06:32 | Orthopedics Progress Note ---
Date of Encounter: 12/28/17 Time of Encounter: 06:32 Subjective Interval history: IV access obtained evaluation by PICC team plan for surgery today and discharged today. Objective Vital signs: Vital Signs Temp Pulse Resp BP Pulse Ox 12/28/17 04:52 97.9 F 72 17 127/68 95 12/27/17 23:31 98.4 F 84 16 148/76 94 12/27/17 22:29 16 95 12/27/17 20:37 98.0 F 69 17 129/61 95 12/27/17 18:05 99 12/27/17 13:55 18 139/64 99 12/27/17 13:25 97.8 F 68 18 139/64 99 Intake and Output 12/27/17 12/27/17 12/28/17 15:59 23:59 07:59 Intake Total 480 / 480 175 / 175 Balance 480 / 480 175 / 175 Intake: Oral 480 / 480 175 / 175 Other: # Voids 1 1 Weight 75.75 kg Blood Glucose* 97 106 - Labs Labs: Abnormal lab results POC Glucose 106 (58-89) H 12/27/17 20:41 - VTE Reasons for not Prescribing Prophylaxis: Treatment not Indicated - Low risk for VTE Consult Discharge Plan - Plan Additional Instructions: Stay in sling do not remove dressing okay to squeeze ball Referrals: Rex Donohue [Primary Care Provider] -
[2017-12-28] MEDS ORDERED: Lidocaine -MPF 1% 5 ML AMPUL INFILT ONE ×2 (06:34→18:07)
[2017-12-28] MEDS: Beclomethasone 80mcg MDI IH SCH (08:47)
[2017-12-28] MEDS ORDERED: Multivit/Ca/Min/Fe/FA 1 TAB TABLET PO SCH (09:00)
[2017-12-28] MEDS ORDERED: Aspirin 81 MG TAB.CHEW PO SCH (09:00)
[2017-12-28] MEDS ORDERED: Ascorbic Acid 500 MG TABLET PO SCH (09:00)
[2017-12-28] MEDS ORDERED: *HR* Metformin 500 MG TABLET PO SCH (09:00)
[2017-12-28] MEDS ORDERED: Topiramate 100 MG TABLET PO SCH (09:00)
[2017-12-28] MEDS: DIFLUNISAL 500 MG PO SCH (09:48)
[2017-12-28] MEDS: Sucralfate 1 GM TABLET PO SCH ×2 (10:55→15:36)
[2017-12-28] MEDS: Gabapentin 400 MG CAPSULE PO SCH ×2 (10:55→15:37)
[2017-12-28] MEDS: Acetaminophen 325 MG TABLET PO PRN (12:28)
[2017-12-28] MEDS ORDERED: Lidocaine -MPF 2% 2 ML VIAL ONE (14:44)
[2017-12-28] MEDS ORDERED: *HR* Propofol 200 MG/20 ML VIAL IVP ONE (14:44)
[2017-12-28] MEDS ORDERED: *HR* Succinylcholine 200 MG/10 ML VIAL IVP ONE (14:44)
[2017-12-28] MEDS ORDERED: Ketorolac 30 MG/ML VIAL ONE (14:44)
[2017-12-28] MEDS ORDERED: Dexamethasone 4 MG/ML VIAL ONE (14:44)
[2017-12-28] MEDS ORDERED: Ondansetron 4 MG/2 ML VIAL ONE (14:44)
[2017-12-28] MEDS ORDERED: *HR* FentaNYL (PF) 100 MCG/2 ML VIAL ONE ×2 (14:44→17:12)
[2017-12-28] MEDS ORDERED: *HR* Midazolam HCl 2 MG/2 ML VIAL ONE (14:44)
[2017-12-28] MEDS ORDERED: Lidocaine -MPF 4% 5 ML AMPUL ONE (14:57)
[2017-12-28] MEDS ORDERED: Ethanol\\Acetic Acid\\Na Ace\\Ben 1,000 ML IRRIG.SOLN IR ONE (15:34)
[2017-12-28] MEDS ORDERED: Vancomycin 1,000 MG VIAL ONE (15:37)
--- NOTE | 2017-12-28 15:37 | Discharge Summary ---
Date of Encounter: 12/28/17 Time of Encounter: 15:34 - Discharge Diagnosis (1) Obesity (BMI 30.0-34.9) Priority: Secondary Status: Chronic (2) HTN (hypertension) Priority: Secondary Status: Chronic Qualifiers: Hypertension type: unspecified Qualified Code(s): I10 - Essential (primary ) hypertension (3) HLD (hyperlipidemia) Priority: Secondary Status: Chronic Qualifiers: Hyperlipidemia type: unspecified Qualified Code(s): E78.5 - Hyperlipidemia , unspecified (4) DMII (diabetes mellitus, type 2) Priority: Secondary Status: Chronic Qualifiers: Diabetes mellitus complication status: without complication Diabetes mellitus automatic clipper insulin use: unspecified automatic clipper insulin use status Qualified Code(s): E11.9 - Type 2 diabetes mellitus without complications (5) COPD (chronic obstructive pulmonary disease) Priority: Secondary Status: Chronic Qualifiers: COPD type: unspecified COPD Qualified Code(s): J44.9 - Chronic obstructive pulmonary disease, unspecified (6) Shoulder and upper arm, blister, infected Priority: Primary Status: Acute Qualifiers: Encounter type: subsequent encounter Laterality: right Qualified Code(s) : S40.221D - Blister (nonthermal) of right shoulder, subsequent encounter; S40.821D - Blister (nonthermal) of right upper arm, subsequent encounter; S40.821D - Blister (nonthermal) of right upper arm, subsequent encounter; L08.9 - Local infection of the skin and subcutaneous tissue, unspecified; L08.9 - Local infection of the skin and subcutaneous tissue, unspecified - Discharge Medications Prescriptions: Vancomycin/0.9 % Sod Chloride [Vancomycin 1 G/100Ml-0.9% NaCl] 1 gm IV Q12H 14 Days #28 plast..bag Home Medications: Albuterol Sulfate [Proair Respiclick] 2 puff IH Q4H PRN 04/17/16 [History] Aspirin 81 mg PO DAILY 04/17/16 [History] Atorvastatin [Lipitor] 40 mg PO HS 04/17/16 [History] Fluticasone Propionate [Flovent Hfa] 1 puff IH BID #0 04/17/16 [History] Gabapentin [Neurontin] 800 mg PO TID 04/17/16 [History] Metformin HCl [Fortamet] 500 mg PO DAILY 04/17/16 [History] Buspirone HCl [Buspar] 7.5 mg PO BID 07/30/17 [History] DULoxetine [Cymbalta] 30 mg PO DAILY 07/30/17 [History] Diflunisal 500 mg PO BID 07/30/17 [History] Duloxetine HCl [Cymbalta] 60 mg PO HS 07/30/17 [History] Sucralfate [Carafate] 1 gm PO QID 07/30/17 [History] Tizanidine HCl [Zanaflex] 2 mg PO BID PRN 07/30/17 [History] Topiramate [Topamax] 100 mg PO DAILY 07/30/17 [History] Acetaminophen [Non-Aspirin] 650 mg PO Q6H PRN 09/21/17 [History] Ascorbic Acid [Vitamin C] 250 mg PO DAILY 09/21/17 [History] Cetirizine HCl [Zyrtec] 10 mg PO HS 09/21/17 [History] Omeprazole [PriLOSEC] 20 mg PO BID 09/21/17 [History] OxyCODONE Immed Rel [Roxicodone 5 MG] 5 - 10 mg PO Q6HR PRN 09/21/17 [History] Ropinirole HCl [Requip] 0.25 mg PO HS 09/21/17 [History] Clindamycin [Cleocin] 150 mg PO Q6HR #20 capsule 12/27/17 [Rx] Memantine HCl 5 mg PO BID 12/27/17 [History] Multivitamin [One Daily Multivitamin] 1 tab PO DAILY 12/27/17 [History] OxyCODONE Immed Rel [Roxicodone 5 MG] 5 mg PO Q4HR PRN 5 Days #20 tablet [Rx] Vancomycin/0.9 % Sod Chloride [Vancomycin 1 G/100Ml-0.9% NaCl] 1 gm IV Q12H 14 Days #28 plast..bag 12/28/17 [Rx] Allergies/Adverse Reactions: 3 Allergy/AdvReac Type Severity Reaction Status Date / Time levofloxacin [From Levaquin] Allergy Severe Anaphylaxis Verified 09/21/17 14:18 tetanus toxoid, adsorbed Allergy Nausea Verified 09/21/17 14:18 Amoxicillin AdvReac Gastrointestinal Verified 09/21/17 14:18 Upset azithromycin AdvReac Gastrointestinal Verified 09/21/17 14:18 Upset cimetidine [From Tagamet] AdvReac Nausea Verified 09/21/17 14:18 codeine AdvReac Nausea Verified 09/21/17 14:18 naproxen [From Naprosyn] AdvReac Rash Verified 09/21/17 14:18 Penicillins [PCN] AdvReac Nausea Verified 09/21/17 14:18 Sulfa (Sulfonamide AdvReac Hives Verified 09/21/17 14:18 Antibiotics) Labs on day of discharge: Labs from last 24 hours 12/27/17 20:41 POC Glucose 106 H Date of admission: 12/27/17 17:38 Primary care physician: Rex Donohue Consults: 12/27/17 17:05 Consult to Occupational Therapy [CONS] Routine Comment: post shoulder surgery Reason for Consult: post shoulder surgery Consult to Physical Therapy [CONS] Routine Comment: post shoulder surgery Reason for Consult: post shoulder surgery RT Post Op Consult [CONS] Routine 12/27/17 17:10 Consult to Invasive Line Access Team [CONS] Routine Reason for Consult: PICC line nonfunctional surgery tomorrow Line Type: PICC 12/28/17 06:34 Consult to Invasive Line Access Team [CONS] Routine Reason for Consult: Picc Line Insertion Line Type: PICC 12/28/17 12:55 Consult to Sandwich Wrapper [CONS] Routine Reason for SW Consult: Discharge planning - Patient Status Disposition: Transfer Inpatient Rehab Fac Condition: Good Functional capacity at discharge: wheelchair bound Overall status at discharge: patient is progressing back to baseline - Discharge Instructions Follow Up With: Rex Donohue [Primary Care Provider] - Additional Instructions: Stay in sling do not remove dressing okay to squeeze ball - Hospital Course Hospital course: Ms. Pickering is a 67 year old female With an infection of the right arm. Upper. Patient was postoperative surgery yesterday had problems with IV axis patient was admitted IV access was obtained this morning patient discharged back to rehabilitation facility on IV antibiotics. We will follow up in 1 week. - Time Spent with Patient Total time spent providing and/or coordinating discharge services: - VTE Reasons for not Prescribing Prophylaxis: Treatment not Indicated - Low risk for VTE
[2017-12-28] MEDS ORDERED: EPHEDrine 50 MG/ML VIAL ONE (16:12)
[2017-12-28] MEDS ORDERED: *HR* Promethazine 25 MG/ML VIAL IVP PRN (16:28)
[2017-12-28] MEDS ORDERED: Dexamethasone 4 MG/ML VIAL IVP ONE (16:28)
--- NOTE | 2017-12-28 16:37 | Orthopedic Operative Note ---
Date of procedure: 12/28/17 Pre-op diagnosis: Infection right shoulder Post-op diagnosis: same Procedure: Procedure: Open irrigation and debridement right shoulder with removal of cement spacer. Estimated blood loss 100 mL Procedure: Patient brought to the operating room placed on the operating table after general anesthesia was administered the right upper extremity was prepped and draped in the sterile surgical fashion. Patient received IV and proximal skin incision. Patient had a small draining area distal pole incision. An elliptical excision was made around this area. Incision made through skin subcutaneous tissue. No pus was identified. Cultures were obtained. This area communicated with a sharp point off the cement spacer. The deltopectoral interval was opened and the space was removed. Extensive debridement was performed and the shoulder set for 1 minute with antimicrobial solution. This was then irrigated out with pulse irrigation. The deep tissue was closed with # 1 PDS suture superficial tissue with 0 PDS suture subcutaneous tissue with Monocryl suture skin with skin rae. Patient was sterile dressing sling extubated transferred to recovery room in stable condition. Anesthesia: GETA Surgeon: Ralph Soto Was there an phlebotomist medical lab assistant present: No Estimated blood loss (cc): 100 Condition: stable Disposition: PACU
[2017-12-28] MEDS: MORPHINE SUL Oral CONC 10 MG/0.5 ML ORAL.SYG SL PRN ×2 (16:54→17:01)
[2017-12-28] MEDS ORDERED: *HR* FentaNYL (PF) 100 MCG/2 ML VIAL IVP PRN (17:10)
[2017-12-28] MEDS ORDERED: Sennosides 8.6 MG TABLET PO PRN (18:07)
[2017-12-28] MEDS ORDERED: Naloxone 0.4 MG/ML INJ IVP PRN (18:07)
[2017-12-28] MEDS ORDERED: Ondansetron 4 MG/2 ML VIAL IVP PRN (18:07)
[2017-12-28] MEDS ORDERED: Acetaminophen 325 MG TABLET PO PRN (18:07)
[2017-12-28] MEDS ORDERED: Temazepam 15 MG CAPSULE PO PRN (18:07)
[2017-12-28] MEDS ORDERED: MOM Conc 10 ML UD.LIQ PO PRN (18:07)
[2017-12-28] MEDS ORDERED: tiZANidine 4 MG TABLET PO PRN (18:07)
[2017-12-28] MEDS ORDERED: *HR* OxyCODONE Immed Rel 5 MG TABLET PO PRN (18:07)
[2017-12-28] MEDS ORDERED: Ringers Solution, Lactated 1,000 ML IVC SCH ×2 (18:07)
--- NOTE | 2017-12-28 18:13 | Anesthesia Evaluation Post Op ---
Date of Encounter: 12/28/17 Time of Encounter: 17:45 - Vital Signs Vital Signs: Vital Signs/O2 Sat, Most Current Temp Pulse Resp BP Pulse Ox 98 F 73 16 146/78 100 12/28/17 17:46 12/28/17 17:46 12/28/17 17:46 12/28/17 17:46 12/28/17 17:46 - Lungs Lungs: Clear Ascult./Percussion - Airway Airway: Non-obstructed - Cardiovascular Regular Rate - Mental Status Mental Status: Alert & Oriented, Answers Appropriately - Pain Pain Scale used: Numeric (1 - 10) (tolerable) - Nausea Vomiting Nausea Vomiting: Not Present - Hydration Hydration: Tolerates oral liquids - Discharge PostOp Status: Transfer Patient to floor
[2017-12-28] MEDS ORDERED: Sucralfate 1 GM TABLET PO SCH (21:00)
[2017-12-28] MEDS ORDERED: DIFLUNISAL 500 MG PO SCH (21:00)
[2017-12-28] MEDS ORDERED: Gabapentin 400 MG CAPSULE PO SCH (21:00)
[2017-12-28] MEDS ORDERED: rOPINIRole 0.25 MG TABLET PO SCH (21:00)
[2017-12-28] MEDS ORDERED: Loratadine 10 MG TABLET PO SCH (21:00)
[2017-12-28] MEDS ORDERED: Beclomethasone 80mcg MDI IH SCH (22:00)
[2017-12-28 22:40] VITALS: BP 121/67
[2017-12-29] MEDS ORDERED: Ascorbic Acid 500 MG TABLET PO SCH (09:00)
[2017-12-29] MEDS ORDERED: Aspirin 81 MG TAB.CHEW PO SCH (09:00)
[2017-12-29] MEDS ORDERED: *HR* Metformin 500 MG TABLET PO SCH (09:00)
[2017-12-29] MEDS ORDERED: Multivit/Ca/Min/Fe/FA 1 TAB TABLET PO SCH (09:00)
[2017-12-29] MEDS ORDERED: Topiramate 100 MG TABLET PO SCH (09:00)
--- NOTE | 2017-12-29 11:33 | Physician Discharge Referral ---
ExtendedCare Referral Info Transfer To: [facility] Provider in Charge: Provider in Charge after Transfer: PCP Institutional Level of Care: Skilled - Diagnosis (1) Status post hardware removal Priority: Primary Status: Acute (2) COPD (chronic obstructive pulmonary disease) Priority: Secondary Status: Chronic (3) DMII (diabetes mellitus, type 2) Priority: Secondary Status: Chronic (4) HLD (hyperlipidemia) Priority: Secondary Status: Chronic (5) HTN (hypertension) Priority: Secondary Status: Chronic (6) Obesity Priority: Secondary Status: Chronic Expected Duration of Placement: < 30 days Prognosis: Good Aware of Diagnosis: Patient Aware of Prognosis: Patient - Transfer Medications Prescriptions: Vancomycin/0.9 % Sod Chloride [Vancomycin 1 G/100Ml-0.9% NaCl] 1 gm IV Q12H 14 Days #28 plast..bag Home Medications: Albuterol Sulfate [Proair Respiclick] 2 puff IH Q4H PRN 04/17/16 [History] Aspirin 81 mg PO DAILY 04/17/16 [History] Atorvastatin [Lipitor] 40 mg PO HS 04/17/16 [History] Fluticasone Propionate [Flovent Hfa] 1 puff IH BID #0 04/17/16 [History] Gabapentin [Neurontin] 800 mg PO TID 04/17/16 [History] Metformin HCl [Fortamet] 500 mg PO DAILY 04/17/16 [History] Buspirone HCl [Buspar] 7.5 mg PO BID 07/30/17 [History] DULoxetine [Cymbalta] 30 mg PO DAILY 07/30/17 [History] Diflunisal 500 mg PO BID 07/30/17 [History] Duloxetine HCl [Cymbalta] 60 mg PO HS 07/30/17 [History] Sucralfate [Carafate] 1 gm PO QID 07/30/17 [History] Tizanidine HCl [Zanaflex] 2 mg PO BID PRN 07/30/17 [History] Topiramate [Topamax] 100 mg PO DAILY 07/30/17 [History] Acetaminophen [Non-Aspirin] 650 mg PO Q6H PRN 09/21/17 [History] Ascorbic Acid [Vitamin C] 250 mg PO DAILY 09/21/17 [History] Cetirizine HCl [Zyrtec] 10 mg PO HS 09/21/17 [History] Omeprazole [PriLOSEC] 20 mg PO BID 09/21/17 [History] OxyCODONE Immed Rel [Roxicodone 5 MG] 5 - 10 mg PO Q6HR PRN 09/21/17 [History] Ropinirole HCl [Requip] 0.25 mg PO HS 09/21/17 [History] Clindamycin [Cleocin] 150 mg PO Q6HR #20 capsule 12/27/17 [Rx] Memantine HCl 5 mg PO BID 12/27/17 [History] Multivitamin [One Daily Multivitamin] 1 tab PO DAILY 12/27/17 [History] OxyCODONE Immed Rel [Roxicodone 5 MG] 5 mg PO Q4HR PRN 5 Days #20 tablet [Rx] Vancomycin/0.9 % Sod Chloride [Vancomycin 1 G/100Ml-0.9% NaCl] 1 gm IV Q12H 14 Days #28 plast..bag 12/28/17 [Rx] Allergies/Adverse Reactions: 3 Allergy/AdvReac Type Severity Reaction Status Date / Time levofloxacin [From Levaquin] Allergy Severe Anaphylaxis Verified 09/21/17 14:18 tetanus toxoid, adsorbed Allergy Nausea Verified 09/21/17 14:18 Amoxicillin AdvReac Gastrointestinal Verified 09/21/17 14:18 Upset azithromycin AdvReac Gastrointestinal Verified 09/21/17 14:18 Upset cimetidine [From Tagamet] AdvReac Nausea Verified 09/21/17 14:18 codeine AdvReac Nausea Verified 09/21/17 14:18 naproxen [From Naprosyn] AdvReac Rash Verified 09/21/17 14:18 Penicillins [PCN] AdvReac Nausea Verified 09/21/17 14:18 Sulfa (Sulfonamide AdvReac Hives Verified 09/21/17 14:18 Antibiotics) - Respiratory Orders Smoking Cessation: Smoking cessation has been advised. For more information, call the [employer] Quit Line at 9-492-ZOQR-NOW. - Lab Orders Lab Orders: CBC, Other (include drug levels w/frequency) (Weekly ESR, CRP) - Ancillary Orders May use pressure relief devices daily prn, May go on RENETTA w/family/respon green party w /meds at nurse discretion PRN, May consult with Dentist, Service Delivery Management Consultant, Ultrasound Tech PRN - Mobility Orders Ambulate - Rehabiliation Orders Rehab Potential: Good Rehab Orders: Evaluation for Occupational Therapy Other: No shoulder ROM, elbow ROM ok, hand/wrist ROM as tolerated. Sling at all times. Opsite in place. Will remove dressing at first post-operative appt. If dressing becomes >50% saturated, contact office, remove dressing and place appropriate dressing in its place. Do not allow for dressing to get wet PT: Hold Shoulder motion. Precautions x 6 weeks Apply cold therapy wrap 3-6x/day for 20 minutes at a time. Encourage ambulation throughout the day and incentive spirometer 10x/hour. Elevate affected extremity above heart as tolerated. Brace: Continue in Arm slingshot Follow Total Shoulder precautions x 6 weeks. No lifting/pulling or pushing. - Treatments Skin tear care topically daily PRN per policy List/Other: Vancomycin IV x 4-6 weeks - pharmacy to dose. Clean and dress PICC line appropriately daily. CERTIFICATION: I certify that the transfer of the above named patient to an Extended Care Facility is necessary for the continuing treatment of the diagnosis listed. The above information is true and accurate reflection of patient's current condition. Confidential - Redisclosure prohibited without a patient's written consent.
== END 2017-12-28 23:40 ==
LOC: SAMDAY 12:59 → 3NENU 12:59
PROVIDERS: ADMIT Orthopaedic Surgery; ATTEND Orthopaedic Surgery